=== PATIENT | male | born 1960 | race Hispanic/Latino ===

== ENCOUNTER 2021-06-13 07:09 | Day surgery (SDC) | payer MEDICARE ==
[2021-06-13 07:54] LABS: Basophils # (Auto) 0.1 K/mm3 (0.0-0.1); Basophils % (Auto) 0.8 % (0.0-1.8); Eosinophils # (Auto) 0.2 K/mm3 (0.0-0.4); Eosinophils % (Auto) 1.3 % (0.0-4.3); Hemoglobin 14.3 gm/dl (11.8-15.2); Lymphocytes # (Auto) 3.1 K/mm3 (1.2-5.4); Lymphocytes % (Auto) 24.9 % (13.4-35.0); Monocytes # (Auto) 1.2 K/mm3 (0.0-0.8); Monocytes % (Auto) 9.9 % (0.0-7.3)
[2021-06-13] MEDS ORDERED: SODIUM CHLORIDE 0.9% 500 ML 500 ML IV SCH (08:00)
[2021-06-13 08:04] LABS: INR 0.87 (0.87-1.13)
[2021-06-13 08:05] LABS: Partial Thromboplastin Time 23.6 Sec. (24.2-36.6)
[2021-06-13 08:06] LABS: BUN/Creatinine Ratio 25; Blood Urea Nitrogen 25 mg/dL (9-20); Calcium 9.6 mg/dL (8.4-10.2); Hemolysis Index 0
--- NOTE | 2021-06-13 08:11 | Electrocardiograph Report ---
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
[2021-06-13] MEDS ORDERED: VERAPAMIL 5 MG/2 ML INJ ONE (08:19)
[2021-06-13 08:21] LABS: Hematocrit 44.2 % (35.5-45.6); Mean Corpuscular HGB Conc 32 % (32-34); Mean Corpuscular Volume 88 fl (84-94); Platelet Count 256 K/mm3 (140-440); Red Blood Count 5.02 M/mm3 (3.65-5.03)
[2021-06-13] MEDS ORDERED: NITROGLYCERIN SYRINGE 3 ML ONE (08:21)
[2021-06-13] MEDS ORDERED: ASPIRIN EC 81 MG TAB PO ONE (08:29)
[2021-06-13] MEDS ORDERED: fentaNYL 100 MCG/2 ML INJ ONE (08:56)
[2021-06-13] MEDS ORDERED: ATROPINE 0.1% (1 MG/10 ML) CARDIAC SYRINGE ONE (09:06)
[2021-06-13] MEDS: MIDAZOLAM 2 MG/2 ML INJ ONE ×2 (09:07→09:10)
[2021-06-13] MEDS: LIDOCAINE (2%) 20 MG/1 ML VIAL 20 ML MDV INFILTRATI ONE ×2 (09:08→09:19)
[2021-06-13] MEDS: HEPARIN 10,000 UNITS/10 ML VIAL ONE ×2 (09:08→09:20)
[2021-06-13] MEDS: HEPARIN/NS 5000 UNIT/500ML 1,000 ML IR ONE ×2 (09:16→09:25)
[2021-06-13] MEDS ORDERED: ASPIRIN 81 MG TAB CHEW PO SCH (10:00)
--- NOTE | 2021-06-13 10:09 | Cardiac Catherization Report ---
DATE OF PROCEDURE: 06/13/2021 CARDIAC CATHETERIZATION REFERRING PHYSICIAN: Alfa Ocampo M.D. INDICATIONS FOR PROCEDURE: The patient is a 60-year-old gentleman, multiple risk factors, recent PCI in [place], recurrent chest pain, abnormal nuclear stress test. Family is concerned, referred for left heart catheterization. Risks, benefits, and alternatives were explained in length prior to obtaining informed consent. PROCEDURE IN DETAIL: The patient was brought to lab technician in a postabsorptive state, prepped and draped in sterile fashion. Christian's test in right hand is normal; 2 mL of 2% lidocaine used to anesthetize the right wrist. A standard 6-Pashto hydrophilic sheath used to cannulate the right radial artery via modified Seldinger technique. All exchanges performed to exchange a J-tip guidewire. JL3.5 catheter used to engage left main. No dampening or ventricularization. Cineangiography performed in all projections. JR4 catheter used to cross the aortic valve under fluoroscopic guidance. Left ventriculography performed in 30-degree RIVERO and 30-degree VIETNAMESE projections via hand injections, catheter flushed. Manual pullback performed with continuous pressure monitoring. Catheter was used to engage the right coronary. No dampening or ventricularization. Cineangiography performed in all projections. Next, catheter removed from the body of wire, sheath removed. Manual pressure used to achieve hemostasis. I directly supervised the administration of moderate sedation with fentanyl and Versed from 9:00 a.m. to 9:35 a.m. No immediate complications. DATA: Aortic pressure is 120/60, LV pressure is 120, LVEDP of 12 mmHg. Left ventriculography reveals normal systolic performance, estimated ejection fraction of 55-60%. No evidence of aortic stenosis. CORONARY ANATOMY: This is a right dominant system. Right coronary is a moderate-sized vessel, courses AV groove, distally bifurcates into posterior descending and posterolateral branches. No discrete stenoses noted. Left main without significant disease, bifurcates into left anterior descending and left circumflex. Left circumflex is a moderate-sized vessel, courses AV groove. Scattered luminal irregularities, but no significant disease. LAD is a moderate-sized vessel, courses anterior intergroove, wraps around the apex. Scattered luminal irregularities, but no discrete stenoses noted. Patent stent in the mid LAD, 25% proximal LAD stenosis. CONCLUSIONS: 1. Mild nonobstructive coronary artery disease in this right dominant system. Patent mid LAD stent, 25% proximal LAD stenosis. 2. Normal left ventricular function, estimated ejection fraction of 55-60%. 3. No evidence of aortic stenosis. 4. Normal LVEDP. At this point, we will continue current medications. Continue Ranexa, statin, aspirin, as well as Plavix. Clinically stable. Discussed with his , Ms. Jewels Larose, have him follow up with me in the office. Stable cardiac status, otherwise. Stable rate. Standard radial care. TID: [id number] RECEIPT: [id number] ALEENA/MODESTO
--- NOTE | 2021-06-13 11:03 | Short Stay Summary ---
Short Stay Documentation Date of service: 06/13/21 - History H&P: obtained from office - Allergies and Medications Current Medications: Allergies codeine Allergy (Verified 06/13/21 07:30) Nausea Home Medications Medication Instructions Recorded Confirmed Last Taken Type Aspirin EC [Halfprin EC] 81 mg PO QDAY 06/13/21 06/13/21 06/13/21 08:33 History Atorvastatin (Nf) [Lipitor (Nf)] 10 mg PO QHS 06/13/21 06/13/21 06/12/21 History Clopidogrel [Plavix] 75 mg PO QDAY 06/13/21 06/13/21 06/12/21 22:00 History Escitalopram Oxalate [Lexapro] 20 mg PO DAILY 06/13/21 06/13/21 06/12/21 History Ranolazine [Ranolazine ER] 1 tab PO BID 06/13/21 06/13/21 06/12/21 History Valsartan/Hydrochlorothiazide 1 each PO DAILY 06/13/21 06/13/21 06/12/21 History [Diovan Hct 320-12.5 mg Tab] Zolpidem (Nf) [Ambien (Nf)] 10 mg PO QHS 06/13/21 06/13/21 06/12/21 History amLODIPine [Norvasc] 5 mg PO DAILY 06/13/21 06/13/21 06/12/21 22:00 History Active Medications Aspirin (Aspirin 81 Mg Tab Chew) 81 mg PO QDAY DENISE Sodium Chloride (Nacl 0.9% 500 Ml) 500 mls @ 50 mls/hr IV DIRECT DENISE Stop: 06/13/21 17:59 Last Admin: 06/13/21 08:35 Dose: 0 mls - Brief post op/procedure progress note Date of procedure: 06/13/21 Pre-op diagnosis: Chest pain and abnormal stress test Post-op diagnosis: other (Mild nonobstructive coronary artery disease) Anesthesia: local Estimated blood loss: minimal - Hospital course Hospital course: Patient presented today for cardiac cath. The cath site was right radial. Patient tolerated procedure well with no complications. Patient found minimal nonobstructive coronary artery disease - Disposition Condition at discharge: Good Disposition: 01 HOME / SELF CARE / HOMELESS - Discharge Diagnoses (1) Coronary artery disease Status: Acute (2) Hypertension Status: Acute (3) Hyperlipidemia Status: Acute Short Stay Discharge Plan Activity: advance as tolerated Diet: low fat, low cholesterol, low salt Wound: keep clean and dry, per your surgeon's advice Follow up with: PRIMARY MD NESSA [Primary Care Provider] - 7 Days KESHAV PATRICK MD [Staff Physician] - 7 Days
[2021-06-13 12:39] VITALS: BP 148/83
== END 2021-06-13 13:16 | disposition home or self-care (01) ==
LOC: CATHLABREC 07:09
PROVIDERS: ATTEND Internal Medicine
DX: R07.89 Other chest pain (principal); R94.39 Abnormal result of other cardiovascular function study; T82.855A Stenosis of coronary artery stent, initial encounter; I25.10 Atherosclerotic heart disease of native coronary artery without angina pectoris; I10 Essential (primary) hypertension; M10.9 Gout, unspecified; I25.2 Old myocardial infarction; E78.5 Hyperlipidemia, unspecified; M19.90 Unspecified osteoarthritis, unspecified site; Z82.61 Family history of arthritis; Z88.5 Allergy status to narcotic agent; Z79.899 Other long term (current) drug therapy; Z98.61 Coronary angioplasty status; Z82.49 Family history of ischemic heart disease and other diseases of the circulatory system; Z86.73 Personal history of transient ischemic attack (TIA), and cerebral infarction without residual deficits; Y83.8 Other surgical procedures as the cause of abnormal reaction of the patient, or of later complication, without mention of misadventure at the time of the procedure; Y92.89 Other specified places as the place of occurrence of the external cause
CPT/HCPCS: 36415; 80048; 85025; 85610; 85730; 93005; 93458; 99156; 99157; C1894; J1644; J1815; J2250; J3010; J3490; J7040; J0461; Q9967